=== PATIENT | male | born 1940 | race Caucasian/White ===

== ENCOUNTER 2020-02-25 12:35 | Emergency (ER) | payer BC, OTHER ==
[2020-02-25 13:02] VITALS: BMI 22.3
[2020-02-25] MEDS ORDERED: LACTATED RINGERS SOLUTION 1000 ML INFUS.BAG IV ONE (13:02)
[2020-02-25] MEDS ORDERED: SODIUM CHLORIDE 1,000 ML IV STA (13:44)
[2020-02-25 13:59] LABS: BASO % 0.4 % (0-2.0); HEMATOCRIT 39.5 % (35.4-49); HEMOGLOBIN 12.8 GM/dl (11.7-16.9); LYMPH % 7.8 % (8-40); MCH 29.2 pg (25.7-33.7); MCHC 32.3 g/dl (32.0-35.9); MEAN CELL VOLUME 90.4 fl (80-96); MEAN PLT VOLUME 7.4 fl (7.5-11.1); MONO % 7.2 % (3.8-10.2); NEUT % 84.6 % (42.8-82.8); PLATELET COUNT 160 K/MM3 (134-434); RBC 4.37 M/mm3 (4.00-5.60); RDW 13.5 % (11.9-15.9); WHITE BLOOD COUNT 4.6 K/mm3 (4.0-10.8)
[2020-02-25 14:04] LABS: BILIRUBIN,TOTAL 0.7 mg/dl (0.2-1); CREATININE 1.8 mg/dl (0.55-1.3); POTASSIUM 3.6 mmol/L (3.5-5.1)
[2020-02-25 15:12] LABS: EPITHELIAL CELLS RARE /hpf; URINE HYALINE CAST 0-1 /lpf
[2020-02-25 15:23] VITALS: BP 126/75; PULSE 68; TEMP 99.1
== END 2020-02-25 16:10 | disposition home or self-care (01) ==
LOC: FER 12:35
PROC: 3E0337Z Introduction of Electrolytic and Water Balance Substance into Peripheral Vein, Percutaneous Approach (ICD-10-PCS; principal; 2020-02-25)
DX: U07.1 COVID-19 (principal); N17.9 Acute kidney failure, unspecified; R53.1 Weakness
CPT/HCPCS: 36415; 71045-TC-FY; 80053; 81003; 81015; 84484; 85025; 87086; 93005; 96360; 99285-25; C9803; U0003